=== PATIENT | female | born 2000 | race Hispanic/Latino ===

== ENCOUNTER 2024-05-31 10:52 | Emergency (ER) | payer BC ==
[~2024-05-31] VITALS: Ht 162.6 cm; Wt 56.7 kg
[2024-05-31 11:21] LABS: BASOPHILS # (AUTO) 0.03 K/uL (0.00-0.20); BASOPHILS % (AUTO) 0.3 % (0.0-5.0); EOSINOPHILS # (AUTO) 0.04 K/uL (0.00-0.70); EOSINOPHILS % (AUTO) 0.4 % (0.0-8.0); HEMATOCRIT 36.5 % (36-48); IMMATURE GRANULOCYTE ABSOLUTE 0.02 K/uL (0-1); LYMPHOCYTES # (AUTO) 1.9 K/uL (1.0-4.8); MEAN CORPUSCULAR HEMOGLOBIN 33.4 pg (27.0-33.0); MEAN CORPUSCULAR HGB CONC 35.1 g/dL (32.0-36.0); MEAN CORPUSCULAR VOLUME 95.3 fL (79-99); MONOCYTES # (AUTO) 0.3 K/uL (0.1-1.0); MONOCYTES % (AUTO) 3.2 % (3.0-13.0); NEUTROPHILS % (AUTO) 75.9 % (40.0-77.0); PLATELET COUNT (AUTO) 248 K/uL (130-400); RED BLOOD CELL COUNT(AUTO) 3.83 MIL/uL (4.00-5.50); RED CELL DISTRIBUTION WIDTH 11.5 % (11.0-15.5); WHITE BLOOD COUNT (AUTO) 9.2 K/uL (4.8-10.8)
[2024-05-31 11:23] LABS: BILIRUBIN,URINE NEGATIVE (NEGATIVE); GLUCOSE, URINE (UA) NEGATIVE (NEGATIVE); KETONES,URINE NEGATIVE (NEGATIVE); LEUKOCYTE ESTERASE ,URINE NEGATIVE Leu/uL (NEGATIVE); NITRATE,URINE NEGATIVE (NEGATIVE); PROTEIN,URINE NEGATIVE (NEGATIVE); UROBILINOGEN,URINE 0.2 mg/dL (0.2-1.0)
[2024-05-31 11:25] LABS: APPEARANCE,URINE HAZY (CLEAR)
[2024-05-31] MEDS: 0.9%NACL 1000ML 1,000 ML IV ONE (11:25)
[2024-05-31] MEDS: ondanSETRON 4MG INJ IVP ONE (11:25)
[2024-05-31] MEDS: ketOROlac 30MG VIAL (30MG/ML) IVP ONE (11:25)
[2024-05-31 11:26] LABS: ADD UA MICROSCOPIC YES; COLOR,URINE YELLOW (YELLOW)
[2024-05-31] MEDS: ketOROlac 30MG VIAL (30MG/ML) ONE (11:26)
[2024-05-31] MEDS: ondanSETRON 4MG INJ ONE (11:26)
[2024-05-31 11:27] LABS: CREATININE 0.9 mg/dL (0.5-1.0); POTASSIUM 3.6 mmol/L (3.5-5.1)
--- NOTE | 2024-05-31 11:27 | ERN ---
ED Note History of Present Illness Stated Complaint: LEFT FLANK PAIN Chief Complaint: Flank Pain Dictation: PATIENT IS A 23-YEAR-OLD female came to the ED with a chief complaint of severe abdominal pain since this morning. Patient complained of left lower quadrant abdominal pain radiating to the left back started suddenly this morning. Patient also complaining of nausea, patient informed about menses last week. Patient does not have any trouble with micturition, patient denies diarrhea, shortness of breath, headaches, fevers, chills. Discussed the pelvic ultrasound results of 5 cm hemorrhagic cyst on right ovary with Dr. Godfrey , and also informed about ultrasound that they can not visualize the right ovary. Dr. Godfrey informed as the cyst is below 7 cm it is up to the patient to be on observation or follow up outpatient, discussed with the patient and family and they chose to follow up outpatient and get discharged with pain medication Allergies: Coded Allergies: No Known Drug Allergies (Unverified Allergy, Unknown, 05/31/24) Home Meds Active Scripts Ketorolac Tromethamine (Ketorolac Tromethamine) 10 Mg Tablet, 10 MG PO TID, #30 TAB Prov:JEF WEBB MD 05/31/24 Acetaminophen (Tylenol) 500 Mg Tab, 500 MG PO TID, #15 TAB Prov:JEF WEBB MD 05/31/24 Past Medical History Past Medical History: No Pertinent History Surgical History: None Review of System Dictation Constitutional-no chills, weight loss/gain, fever Eyes-no injury, pain, redness and discharge ENT-no injury, pain, swelling Cardiovascular no chest pain, palpitations, edema Respiratory no shortness of breath, cough, wheezing Abdomen/GI-no diarrhea, constipation, vomiting, patient has severe abdominal pain and nausea Back no injury and pain Genitourinary no injury, bleeding and discharge Musculoskeletal/extremities no injury, deformity Skin no rash, discoloration Neuro-no headache, weakness, numbness, tingling, seizures, tremors Psych-no suicidal ideation, homicidal ideation, hallucinations, depression, anxiety, memory loss Initial Vital Sign VS Vital Signs Date Time Temp Pulse Resp B/P (MAP) Pulse Ox O2 Delivery O2 Flow Rate FiO2 05/31/24 10:54 98.1 69 22 121/86 99 Room Air 0 05/31/24 13:13 21 Physical Exam Dictation General-patient is awake alert and oriented Head/neck-normocephalic, atraumatic Eyes-PERRL, EOMI, vision at baseline Neck-trachea midline, supple, no nuchal rigidity Cardiovascular-RRR, normal S1/S2, no MRG is, no JVD Respiratory-no distress, wheezing, rales, rhonchi Abdomen-no tenderness, guarding, soft, nondistended Skin warm, dry, normal turgor, no rash Musculoskeletal/extremities pulses equal, no cyanosis Neuro-COA X 4, GCS 15, strength 5/5, CN 2-12 intact Psych-normal behavior, mood and affect normal Results (Laboratory/Radiology) Laboratory/Radiology Laboratory Tests Test 05/31/24 11:10 05/31/24 11:12 Urine Color YELLOW (YELLOW) Urine Appearance HAZY (CLEAR) Urine pH 8.0 (5.0-8.0) Urine Specific [place] 1.019 (1.001-1.031) Urine Protein NEGATIVE mg/dL (NEGATIVE) Urine Glucose (UA) NEGATIVE mg/dL (NEGATIVE) Urine Ketones NEGATIVE mg/dL (NEGATIVE) Urine Occult Blood +- (TRACE) (NEGATIVE) H Urine Nitrate NEGATIVE (NEGATIVE) Urine Bilirubin NEGATIVE mg/dL (NEGATIVE) Urine Urobilinogen 0.2 mg/dL (0.2-1.0) Urine Leukocyte Esterase NEGATIVE Gurjit/uL Urine RBC 6-10 /HPF (0-1) H Urine WBC 0-1 /HPF (0-1) Urine Squamous Epithelial Cells RARE /HPF (0-2) Urine Amorphous Crystals (Auto) FEW /LPF (None Seen) Urine Bacteria FEW /HPF (None Seen) White Blood Count 9.2 K/uL (4.8-10.8) Red Blood Count 3.83 MIL/uL (4.00-5.50) L Hemoglobin 12.8 g/dL (12.0-16.0) Hematocrit 36.5 % (36-48) Mean Corpuscular Volume 95.3 fL (79-99) Mean Corpuscular Hemoglobin 33.4 pg (27.0-33.0) H Mean Corpuscular Hemoglobin Concent 35.1 g/dL (32.0-36.0) Red Cell Distribution Width 11.5 % (11.0-15.5) Platelet Count 248 K/uL (130-400) Mean Platelet Volume 9.4 fL (7.5-10.5) Immature Granulocyte % (Auto) 0.2 % (0-1) Neutrophils (%) (Auto) 75.9 % (40.0-77.0) Lymphocytes (%) (Auto) 20.0 % (21.0-51.0) L Monocytes (%) (Auto) 3.2 % (3.0-13.0) Eosinophils (%) (Auto) 0.4 % (0.0-8.0) Basophils (%) (Auto) 0.3 % (0.0-5.0) Neutrophils # (Auto) 7.0 K/uL (1.8-7.7) Lymphocytes # (Auto) 1.9 K/uL (1.0-4.8) Monocytes # (Auto) 0.3 K/uL (0.1-1.0) Eosinophils # (Auto) 0.04 K/uL (0.00-0.70) Basophils # (Auto) 0.03 K/uL (0.00-0.20) Absolute Immature Granulocyte (auto 0.02 K/uL (0-1) Nucleated Red Blood Cells 0.0 % (0.0-0.19) Sodium Level 135 mmol/L (136-145) L Potassium Level 3.6 mmol/L (3.5-5.1) Chloride Level 101 mmol/L (101-111) Carbon Dioxide Level 30 mmol/L (21-32) Blood Urea Nitrogen 13 mg/dL (7-18) Creatinine 0.9 mg/dL (0.5-1.0) Glomerular Filtration Rate Calc 93 mL/min (>90) Random Glucose 112 mg/dL (70-105) H Total Calcium 8.8 mg/dL (8.5-10.1) Lipase 28 U/L (16-77) Serum Test, Qualitative NEGATIVE (NEGATIVE) Ultrasound Comment: PATIENT: SUSSY SANDOVAL MR#: [id number] : 2000 SEX: F AGE: 23 LOCATION: [facility] ORDER 1230 STATUS: REG REPORT#: [id number] SERVICE 1229 REASON: hemorrhagic cyst on CT , fluid buildup? ORDERING PHYSICIAN: JEF WBEB MD PROCEDURE: PELVCOMP - US PELVIC NON-OB COMP US PELVIC NON-OB COMP REASON: hemorrhagic cyst on CT , fluid buildup? COMPARISON: None TECHNIQUE: Transvaginal pelvic sonogram was performed. FINDINGS: Uterus is 8.3 x 3.9 x 5.0 cm. Endometrium is 1 to 2 mm. There is no endometrial or myometrial mass. There is a 5.4 x 4.9 cm cystic lesion right adnexa. This has debris in the dependent portion. This may represent a hemorrhagic cyst. Cystic mass is less likely. There is a simple appearing 1.6 cm cyst left ovary. There are no solid adnexal masses on either side. There is no free fluid in cul-de-sac. IMPRESSION: 1. Complex cyst right ovary 5.4 cm, with a fluid debris level, findings most consistent with a hemorrhagic cyst. 2. 1.6 cm simple cyst left ovary. DICTATED BY: BRETT CAMPOS MD DATE: 05/31/241334 ELECTRONICALLY SIGNED BY: BRETT CAMPOS MD DATE: 05/31/[address] Scan Comment: PATIENT: SUSSY SANDOVAL MR#: [id number] : 2000 SEX: F AGE: 23 LOCATION: [facility] ORDER STATUS: [facility] REPORT#: [id number] SERVICE 1116 REASON: LLQ pain, possible diverticulitis , possible renal stone ORDERING PHYSICIAN: JEF WEBB MD PROCEDURE: ABD PEL WO - CT ABDOMEN/PELVIS W/O CONTRAST CT ABDOMEN/PELVIS W/O CONTRAST REASON: LLQ pain, possible diverticulitis , possible renal stone COMPARISON: None. FINDINGS: Lung bases are clear. There are no focal liver lesions. There are normal-appearing kidneys.. Spleen and pancreas appear unremarkable. The gallbladder appears normal as well. Bowel loops appear unremarkable. This includes normal appearance of the appendix There is no evidence of free fluid or intraperitoneal air. There are no focal fluid collections. Aorta and retroperitoneum appear normal. There is no retroperitoneal lymphadenopathy. There are 2 cystic lesions in the pelvis, not well visualized in the absence of IV contrast. One on the left is 3.3 cm, there is a fluid collection on the right measuring 4.6 cm. This appears to have a fluid fluid level. This could represent a hemorrhagic cyst. A pelvic ultrasound is recommended for further evaluation. Uterus appears unremarkable as do remaining pelvic soft tissues. The anterior abdominal wall is intact. Osseous structures appear unremarkable. IMPRESSION: 1. 4.6 cm cystic lesion in the right lower quadrant, this appears to have a fluid fluid level and could represent a hemorrhagic cyst, ultrasound recommended for further evaluation. 2. There is a moderate simple appearing cystic lesion left adnexal region, 3.3 cm, probably a simple ovarian cyst. 3. Otherwise unremarkable noncontrast CT abdomen and pelvis. CT was performed with one or more following dose reduction techniques: automated exposure control, adjustment of the mA and kv according to patient's size, or use of a iterative reconstruction technique. DICTATED BY: BRETT CAMPOS MD DATE: 05/31/24 1219 ELECTRONICALLY SIGNED BY: BRETT CAMPOS MD DATE: 05/31/24 1224 ED Course ED Course Orders Procedure Category Date Status Time Vital Signs Per CPOE 05/31/24 Transmitted Routine 10:56 Saline Lock Iv CPOE 05/31/24 Transmitted 10:56 Cbc With Differential LAB 05/31/24 Complete 10:56 Lipase LAB 05/31/24 Complete 10:56 Urinalysis Profile LAB 05/31/24 Complete 10:56 Basic Metabolic Panel LAB 05/31/24 Complete 10:56 Testing, LAB 05/31/24 Complete Serum Hcg 10:59 Ct Abdomen/Pelvis W/O CT 05/31/24 Resulted Contrast 11:16 Ondansetron 4mg Inj PHA 05/31/24 Complete (Zofran 4mg Inj) 11:30 Ketorolac PHA 05/31/24 Complete Tromethamine 30mg/Ml 11:30 0.9%Nacl 1000ml (Ns PHA 05/31/24 Complete 1000ml) 11:30 Ondansetron 4mg Inj PHA 05/31/24 Complete (Zofran 4mg Inj) 11:20 Ketorolac PHA 05/31/24 Complete Tromethamine 30mg/Ml 11:20 Us Pelvic Non-Ob Comp US 05/31/24 Resulted 12:29 Obstetrical Consult CONPHYSVC 05/31/24 Transmitted 14:11 Ketorolac PHA 05/31/24 Verified Tromethamine 15mg/Ml 15:00 Current Medications Medications (Trade) Dose Ordered Sig/Jarrod Route PRN Reason Start Time Stop Time Status Last Admin Dose Admin Ketorolac Tromethamine (toRADol) 30 mg ONCE ONCE IVP 05/31/24 11:30 05/31/24 11:31 DC 05/31/24 11:25 Ketorolac Tromethamine (toRADol) 30 mg STK-MED ONCE .ROUTE 05/31/24 11:20 05/31/24 11:20 DC Ondansetron HCl (zoFRAN 4MG INJ) 4 mg ONCE ONCE IVP 05/31/24 11:30 05/31/24 11:31 DC 05/31/24 11:25 Ondansetron HCl (zoFRAN 4MG INJ) 4 mg STK-MED ONCE .ROUTE 05/31/24 11:20 05/31/24 11:20 DC Sodium Chloride 1,000 ml @ 0 mls/hr ONCE ONCE IV 05/31/24 11:30 05/31/24 11:31 DC 05/31/24 11:25 Vital Signs Date Time Temp Pulse Resp B/P (MAP) Pulse Ox O2 Delivery O2 Flow Rate FiO2 05/31/24 13:13 97.9 76 16 114/62 98 Room Air* 0 21 05/31/24 10:54 98.1 69 22 121/86 99 Room Air 0 Medical Decision Making MDM INITIAL IMPRESSION Initial history and physical concerning for acute diverticulitis, renal stone, ovarian cyst I have reviewed the triage nursing notes and vital signs. Initial plan: Laboratory evaluation . DATA REVIEW I have reviewed additional NN, repeat VS, and monitoring where indicated. Heart rate, blood pressure, and O2 saturation are acceptable. ED COURSE Interventions: Fluids and pain medication Reassessment: Not indicated DISPOSITION Final diagnostic impression: I discussed my findings, clinical impression and treatment recommendations with the patient. My final plan for disposition was made based upon -mild risk of complications and potential morbidity of the patient's condition. -Discussion with the patient regarding management options. Patient will be discharged with medication DX & DISP Disposition: Discharge Departure Impression: Primary Impression: Hemorrhagic cyst of right ovary Additional Impression: Simple ovarian cyst Critical Time: 45 minutes Condition: Stable Scripts Ketorolac Tromethamine (Ketorolac Tromethamine) 10 Mg Tablet 10 MG PO TID, #30 TAB Prov: JEF WEBB MD 05/31/24 Acetaminophen (Tylenol) 500 Mg Tab 500 MG PO TID, #15 TAB Prov: JEF WEBB MD 05/31/24 Referrals: IRMA HOBSON (PCP) BLAINE GODFREY MD followup in 2 to 3 days Time of Disposition: 14:48 I have reviewed I have reviewed the case I have examined patient JEF WEBB MD May 31, 2024 11:26
[2024-05-31 11:31] LABS: BACTERIA,URINE FEW /HPF (None Seen); MUCUS,URINE RARE LPF (None Seen); SQUAMOUS EPITHELIAL CELL,UR RARE /HPF (0-2); WBC,URINE 0-1 /HPF (0-1)
--- NOTE | 2024-05-31 12:24 | HMCIMG ---
CT ABDOMEN/PELVIS W/O CONTRAST REASON: LLQ pain, possible diverticulitis , possible renal stone COMPARISON: None. FINDINGS: Lung bases are clear. There are no focal liver lesions. There are normal-appearing kidneys.. Spleen and pancreas appear unremarkable. The gallbladder appears normal as well. Bowel loops appear unremarkable. This includes normal appearance of the appendix There is no evidence of free fluid or intraperitoneal air. There are no focal fluid collections. Aorta and retroperitoneum appear normal. There is no retroperitoneal lymphadenopathy. There are 2 cystic lesions in the pelvis, not well visualized in the absence of IV contrast. One on the left is 3.3 cm, there is a fluid collection on the right measuring 4.6 cm. This appears to have a fluid fluid level. This could represent a hemorrhagic cyst. A pelvic ultrasound is recommended for further evaluation. Uterus appears unremarkable as do remaining pelvic soft tissues. The anterior abdominal wall is intact. Osseous structures appear unremarkable. IMPRESSION: 1. 4.6 cm cystic lesion in the right lower quadrant, this appears to have a fluid fluid level and could represent a hemorrhagic cyst, ultrasound recommended for further evaluation. 2. There is a moderate simple appearing cystic lesion left adnexal region, 3.3 cm, probably a simple ovarian cyst. 3. Otherwise unremarkable noncontrast CT abdomen and pelvis. CT was performed with one or more following dose reduction techniques: automated exposure control, adjustment of the mA and kv according to patient's size, or use of a iterative reconstruction technique.
--- NOTE | 2024-05-31 13:39 | HMCIMG ---
US PELVIC NON-OB COMP REASON: hemorrhagic cyst on CT , fluid buildup? COMPARISON: None TECHNIQUE: Transvaginal pelvic sonogram was performed. FINDINGS: Uterus is 8.3 x 3.9 x 5.0 cm. Endometrium is 1 to 2 mm. There is no endometrial or myometrial mass. There is a 5.4 x 4.9 cm cystic lesion right adnexa. This has debris in the dependent portion. This may represent a hemorrhagic cyst. Cystic mass is less likely. There is a simple appearing 1.6 cm cyst left ovary. There are no solid adnexal masses on either side. There is no free fluid in cul-de-sac. IMPRESSION: 1. Complex cyst right ovary 5.4 cm, with a fluid debris level, findings most consistent with a hemorrhagic cyst. 2. 1.6 cm simple cyst left ovary.
--- NOTE | 2024-05-31 14:12 | NUR ---
OB CONSULT: DR WILLETT GAVE PATIENT REPORT TO DR GODFREY
[2024-05-31] MEDS ORDERED: ACET-66 PO (14:46)
[2024-05-31] MEDS ORDERED: KETO10TA2 PO (14:46)
[2024-05-31] MEDS: ketOROlac 15MG/ML VIAL (15MG/ML) IV ONE (14:49)
[2024-05-31 15:20] VITALS: BP 121/68; PULSE 82; RESP 16; TEMP 98.2; O2SAT 97
== END 2024-05-31 15:15 | disposition home or self-care (01) ==
LOC: EDH 10:52
DX: N83.201 Unspecified ovarian cyst, right side (principal); Z79.899 Other long term (current) drug therapy
CPT/HCPCS: 99285; 74176; 96374; 76856; 96375; 80048; 84703; 83690; 85025; 81001; 36415; 96376; J7030; J2405; J1885 ×2